=== PATIENT | female | born 1960 | race African-American/Black ===

== ENCOUNTER 2022-06-19 21:29 | Emergency (ER) | payer MEDICARE, OTHER ==
[~2022-06-19] VITALS: Ht 165.1 cm; Wt 72.5 kg
[2022-06-19 21:49] VITALS: BP 171/112
[2022-06-19] MEDS ORDERED: DexAMETHasone SOD PHOS 10MG/1ML VIAL INJ IM ONE (22:15)
== END 2022-06-20 00:16 | disposition left against medical advice (07) ==
LOC: EDBD 21:29 → ER 21:37
DX: R06.02 Shortness of breath (principal); J44.9 Chronic obstructive pulmonary disease, unspecified; Z88.6 Allergy status to analgesic agent
CPT/HCPCS: 71045; 99283; J1100